=== PATIENT | male | born 1990 | race Hispanic/Latino ===

== ENCOUNTER 2018-02-09 22:36 | Emergency (ER) | payer SELFPAY ==
[2018-02-09] MEDS ORDERED: Adacel (T-DAP) 0.5 ML VIAL ONE (23:00)
[2018-02-10 01:21] LABS: Bilirubin Negative (Negative); Blood, Urine Negative (Negative); Clarity CLEAR (Clear); Glucose, Urine (Dipstick) Negative (Negative); Leukocyte Negative (Negative); Nitrite Negative (Negative); Protein, Urine (Dipstick) Negative (Neg-Trace); Specific Gravity, Urine 1.005 (1.002-1.036); Urobilinogen 0.2 mg/dL (0.2-1.0); pH, Urine 6.5 (5.0-9.0)
[2018-02-10] MEDS ORDERED: Ketorolac Tromethamine 30 MG/ML VIAL ONE (01:56)
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
== END 2018-02-10 04:40 | disposition home or self-care (01) ==
LOC: ERS 22:36
DX: S06.0X0A Concussion without loss of consciousness, initial encounter (principal); S80.02XA Contusion of left knee, initial encounter; S80.01XA Contusion of right knee, initial encounter; S00.83XA Contusion of other part of head, initial encounter; S40.022A Contusion of left upper arm, initial encounter; S50.11XA Contusion of right forearm, initial encounter; S60.211A Contusion of right wrist, initial encounter; E11.9 Type 2 diabetes mellitus without complications; X99.9XXA Assault by unspecified sharp object, initial encounter
CPT/HCPCS: 70450; 81003; 90471; 90715; 96361; 96374; J1885